=== PATIENT | male | born 1965 | race Caucasian/White ===

== ENCOUNTER 2017-04-27 18:34 | Emergency (ER) | payer OTHER ==
[~2017-04-27] VITALS: Ht 175.3 cm; Wt 72.6 kg
[2017-04-27] MEDS ORDERED: HYDROCODONE/APAP 10-325 MG TABLET PO ONE (19:30)
[2017-04-27] MEDS ORDERED: ONDANSETRON ODT 4 MG TAB.RAPDIS SL ONE (19:30)
[2017-04-27 19:39] LABS: CREATININE 1.1 mg/dL (0.6-1.3); POTASSIUM 3.7 mmol/L (3.5-5.1)
[2017-04-27 19:42] LABS: BASOPHILS % (AUTO) 0.4 % (0.0-2.0); EOSINOPHILS % (AUTO) 0.7 % (0.0-7.0); HEMOGLOBIN 14.3 G/DL (14.0-18.0); LYMPHOCYTES # (AUTO) 0.8 K/UL (0.8-4.8); LYMPHOCYTES % (AUTO) 20.8 % (20.5-51.5); MEAN CORPUSCULAR HEMOGLOBIN 27.2 UUG (27.0-31.0); MEAN CORPUSCULAR HGB CONC 33 g/dL (32.0-37.0); MEAN CORPUSCULAR VOLUME 83.7 FL (82.0-92.0); MONOCYTES # (AUTO) 0.4 K/UL (0.1-1.30); MONOCYTES % (AUTO) 10.6 % (0.0-11.0); NEUTROPHILS # (AUTO) 2.5 K/UL (1.8-8.9); NEUTROPHILS % (AUTO) 67.5 % (38.5-71.5); PLATELET COUNT (AUTO) 187 K/UL (150-450); RED BLOOD CELL COUNT(AUTO) 5.25 MIL/UL (4.7-6.1); WHITE BLOOD COUNT (AUTO) 3.7 K/UL (4.0-11.2)
[2017-04-27 19:45] LABS: BILIRUBIN,TOTAL 0.4 mg/dL (0.2-1.0); TOTAL PROTEIN, SERUM 7.5 g/dL (6.4-8.2)
[2017-04-27] MEDS ORDERED: ONDANSETRON ODT 4 MG TAB.RAPDIS ONE (19:46)
[2017-04-27] MEDS ORDERED: HYDROCODONE/APAP 10-325 MG TABLET ONE (19:46)
--- NOTE | 2017-04-27 19:46 | NUR ---
Pt to room c/o severe headache x 1 wk with sore neck, blurred vision and mild dizziness. Pt seen by MD. Labs drawn and sent. Pt medicated for pain, will monitor for effects of medication. Pt resting in position of comfort for self.
--- NOTE | 2017-04-27 20:10 | NUR ---
Pt returned from CT. Pt sts pain is improving with medication. Pt resting in position of comfort for self.
--- NOTE | 2017-04-27 21:22 | NUR ---
Pt sts he is feeling better. Pt stable for discharge per MD. Pt given ACI. Pt verbalized understanding of dc instructions. Pt ambulated out of er with steady gait and ride home
[2017-04-27 21:24] VITALS: BP 117/77
== END 2017-04-27 21:24 | disposition home or self-care (01) ==
LOC: ER 18:36
DX: R51 Headache (principal)
CPT/HCPCS: 36415; 70450; 85025; 85610; 87400; A4663; Q0162